=== PATIENT | female | born 1965 | race Caucasian/White ===

== ENCOUNTER → 2024-06-01 15:10 | Outpatient (BNVA) | payer BC, SELFPAY | DX: Z76.89 Persons encountering health services in other specified circumstances (principal); I10 Essential (primary) hypertension | CPT/HCPCS: 80053; 80061; 84439; 84443; 85025 ==

== ENCOUNTER 2024-06-02 12:18 | Outpatient (CLI) | payer BC, SELFPAY ==
--- NOTE | 2024-06-02 12:30 | MM_ITS ---
WS: [id number] BILATERAL 3D TOMOSYNTHESIS DIGITAL SCREENING MAMMOGRAPHY WITH CAD CLINICAL INFORMATION: screening HISTORY: Screening mammogram. No current complaints. COMPARISON: None. TECHNIQUE: Bilateral CC and MLO views. FINDINGS: Scattered fibroglandular densities bilaterally. No suspicious focal mass, asymmetry, calcifications, or architectural distortion. No evidence of malignancy. MM/[place] [id number] IMPRESSION: DENSITY: There are scattered areas of fibroglandular density. BI-RADS: 2 - Benign. FOLLOW UP: 1 Year Follow-up Recommend return to annual screening mammography.
== END 2024-06-02 12:19 | disposition home or self-care (01) ==
LOC: RAD 12:18
DX: Z12.31 Encounter for screening mammogram for malignant neoplasm of breast (principal)
CPT/HCPCS: 77063; 77067

== ENCOUNTER 2024-10-12 11:13 | Outpatient (CLI) | payer BC, MEDICAID, SELFPAY ==
--- NOTE | 2024-10-12 11:17 | XRR_ITS ---
PROCEDURE INFORMATION: Exam: XR Right Knee Exam date and time: 10/12/2024 11:25 AM Age: 59 years old Clinical indication: Pain; Knee; Bilateral; Additional info: Bilat knee pain TECHNIQUE: Imaging protocol: Radiologic exam of the right knee. Views: 3 views. COMPARISON: No relevant prior studies available. FINDINGS: Bones/joints: No acute bony abnormality. No suspcious lytic or blastic osseous lesions. Soft tissues: Unremarkable. XR/XR knee RT 3V* [id number] IMPRESSION: No acute bony abnormality. If symptoms persist, consider repeat plain films in 5-7 days. If there is clinical concern for internal derangement, then consider further evaluation with MRI, if MRI is clinically safe to obtain.
--- NOTE | 2024-10-12 11:17 | XRR_ITS ---
PROCEDURE INFORMATION: Exam: XR Left Knee Exam date and time: 10/12/2024 11:25 AM Age: 59 years old Clinical indication: Pain; Knee; Bilateral; Additional info: Bilat knee pain TECHNIQUE: Imaging protocol: Radiologic exam of the left knee. Views: 3 views. COMPARISON: No relevant prior studies available. FINDINGS: Bones/joints: No acute bony abnormality. No suspcious lytic or blastic osseous lesions. Soft tissues: Unremarkable. XR/XR knee LT 3V* [id number] IMPRESSION: No acute bony abnormality. If symptoms persist, consider repeat plain films in 5-7 days. If there is clinical concern for internal derangement, then consider further evaluation with MRI, if MRI is clinically safe to obtain.
--- NOTE | 2024-10-12 11:17 | XRR_ITS ---
PROCEDURE INFORMATION: Exam: XR Bilateral Hips Exam date and time: 10/12/2024 11:25 AM Age: 59 years old Clinical indication: Hip pain; Bilateral; Additional info: Bilat hip pain TECHNIQUE: Imaging protocol: Radiologic exam of the bilateral hips. Views: 2 views of hips with pelvis when performed. COMPARISON: CR XR lumbar spine 2-3V* [id number] 10/12/2024 11:25 AM FINDINGS: Bones/joints: No acute fracture. Soft tissues: Unremarkable. XR/XR hip BI 3-4V wo/[place] [id number] IMPRESSION: No acute bony abnormality. If symptoms persist, consider repeat plain films in 5-7 days. If symptoms persist, consider further evaluation with cross-sectional imaging.
--- NOTE | 2024-10-12 11:17 | XRR_ITS ---
PROCEDURE INFORMATION: Exam: XR Lumbosacral Spine Exam date and time: 10/12/2024 11:25 AM Age: 59 years old Clinical indication: Low back pain TECHNIQUE: Imaging protocol: Radiologic exam of the lumbosacral spine. Views: 2 or 3 views. COMPARISON: CR XR hip BI 3-4V wo/[place] pel [id number] 10/12/2024 11:25 AM FINDINGS: Bones/joints: No acute fracture. Normal alignment. Soft tissues: Unremarkable. XR/XR lumbar spine 2-3V* [id number] IMPRESSION: No acute findings. If symptoms persist, consider further evaluation with cross-sectional imaging.
--- NOTE | 2024-10-12 11:17 | XRR_ITS ---
PROCEDURE INFORMATION: Exam: XR Right Hand Exam date and time: 10/12/2024 11:25 AM Age: 59 years old Clinical indication: Hand; Patient HX: Pain and swelling in right 5th digit; Additional info: Right hadn pain TECHNIQUE: Imaging protocol: Radiologic exam of the right hand. Views: 3 or more views. COMPARISON: No relevant prior studies available. FINDINGS: Bones/joints: There appears to be a masslike process remodeling the right 5th distal phalanx and possibly the 5th DIP joint. There are associated soft tissue calcifications. XR/XR hand RT min 3V* [id number] IMPRESSION: Masslike process with associated calcifications involving the right 5th distal phalanx and possibly of the 5th DIP joint. Although, this may be related to an inflammatory arthropathy, underlying malignancy cannot be excluded. Findings may be further assessed with MRI with and without IV contrast. Tissue sampling with biopsy may also be of value.
== END 2024-10-12 11:14 | disposition home or self-care (01) ==
LOC: RAD 11:14
DX: M79.641 Pain in right hand (principal); R93.6 Abnormal findings on diagnostic imaging of limbs; M25.551 Pain in right hip; M25.552 Pain in left hip; M25.561 Pain in right knee; M25.562 Pain in left knee; M54.50 Low back pain, unspecified; G89.29 Other chronic pain
CPT/HCPCS: 72100; 73130; 73522; 73562

== ENCOUNTER → 2024-10-29 14:08 | Outpatient (BNVA) | payer BC, SELFPAY | PROVIDERS: Visit Provider Orthopaedic Surgery | DX: M54.50 Low back pain, unspecified (principal); M54.6 Pain in thoracic spine | CPT/HCPCS: 72072; 72110 ==

== ENCOUNTER → 2024-11-11 14:24 | Outpatient (BNVA) | payer BC, SELFPAY | PROVIDERS: Visit Provider Student in an Organized Health Care Education/Training Program | DX: R22.31 Localized swelling, mass and lump, right upper limb (principal) | CPT/HCPCS: 73130 ==

== ENCOUNTER 2024-12-01 13:03 | Outpatient (CLI) | payer BC, MEDICAID, SELFPAY ==
--- NOTE | 2024-12-01 13:05 | MR_ITS ---
WS: [id number] MRI LUMBAR SPINE NONCONTRAST HISTORY: VERTEBROGENIC LOW BACK PAIN COMPARISON: None available. TECHNIQUE: Sagittal and axial multisequence imaging is submitted. Mild increase in thoracic kyphosis. Normal lumbar alignment with no compression fractures or marrow edema. Disc spaces and vertebral body heights are well-preserved. Conus terminates normally at L1-2 disc level. L1-L2: Normal. L2-L3: Mild bilateral ligamentum flavum and facet arthritis. L3-L4: Mild annular disc bulging with osteophytic ridging. Ligamentum flavum hypertrophy and facet arthritis. Mild central and bilateral subarticular recess stenosis. No foraminal stenosis. Mild disc encroachment upon the traversing L4 nerve roots. Very shallow LEFT foraminal disc protrusion. L4-L5: Mild annular disc bulging with moderate ligamentum flavum and facet arthritis. Mild subarticular recess encroachment. L5-S1: Bilateral facet joint arthropathy. No stenosis or disc protrusion. Paravertebral soft tissues are negative. MR/MR lumbar spine wo con* [id number] IMPRESSION: 1. No high-grade central or foraminal stenosis. 2. No lumbar spine fracture. 3. L3-4: Mild central and subarticular recess stenosis. Very slight disc encro achment upon the traversing L4 nerve roots. 4. L4-5: Annular disc bulging with ligamentum flavum and facet arthritis. Mild subarticular recess encroachment. No high-grade stenosis.
== END 2024-12-01 13:04 | disposition home or self-care (01) ==
PROVIDERS: Visit Provider Anesthesiology Pain Medicine
DX: M54.51 Vertebrogenic low back pain (principal); M48.061 Spinal stenosis, lumbar region without neurogenic claudication; M51.369 Other intervertebral disc degeneration, lumbar region without mention of lumbar back pain or lower extremity pain; M47.896 Other spondylosis, lumbar region; M40.294 Other kyphosis, thoracic region; M25.78 Osteophyte, vertebrae; M47.897 Other spondylosis, lumbosacral region
CPT/HCPCS: 72148

== ENCOUNTER 2025-02-11 10:35 | Day surgery (SDC) | payer BC, MEDICAID, SELFPAY ==
[2025-02-11] VITALS (7 sets, daily range): BP systolic 97–156; BP diastolic 60–95; PULSE 62–69; RESP 16–18; TEMP 36.2–37.1; O2SAT 98–99; BMI 22.8
[2025-02-11] MEDS: ketorolac 30 mg/mL INJ IVP (11:10)
[2025-02-11] MEDS: sodium chloride 0.9% 1,000 ML 30 ML IV (11:10)
[2025-02-11] MEDS: acetaminophen 1,000 MG/100 ML PIGGYBACK 400 MG IV (11:10)
--- NOTE | 2025-02-11 12:53 | W.PM.OPSUD ---
Surgery/Procedure H&P Update DATE OF PROCEDURE: February 11, 2025 DATE H&P PERFORMED: 01/27/25 H&P UPDATE INFORMATION: I have reviewed H&P completed within last 30 days, I have examined patient prior to procedure and No changes to prior documentation PREOP DIAGNOSIS: Right small finger chondroma PRIMARY INDICATION FOR PROCEDURE: Right small finger chondroma with erosive changes throughout the ulnar aspect of the distal phalanx PLANNED PROCEDURE: Operation Date: 02/11/25 12:10 Proposed Procedures p RIGHT SMALL FINGER Amputation Finger through Middle Phalanx(Right) - Alan Zaman DO s chondroma excision(Right) - Alan Zaman DO
--- NOTE | 2025-02-11 13:27 | ANES.PREANE2 ---
Pre-Anesthetic Assessment Height/Weight: Height 5 ft 3 in Weight 129 lb Temp Pulse Resp BP Pulse Ox O2 Del Method 98.7 F 62 18 134/78 99 Room Air 02/11/25 11:00 02/11/25 11:00 02/11/25 11:00 02/11/25 11:00 02/11/25 11:00 02/11/25 11:00 Preop Diagnosis: Right small finger chondroma Operation Date: 02/11/25 12:10 Proposed Procedures p RIGHT SMALL FINGER Amputation Finger through Middle Phalanx(Right) - Alan Junie, DO s chondroma excision(Right) - Alan Zaman DO Was Beta Coni taken within 24 hours: N/A Was Clonidine taken within 24 hours: N/A Last intake: Intake Last Liquid Date 02/10/25 Last Liquid Time 18:30 Last Solid Date 02/10/25 Last Solid Time 18:30 Social No alcohol and No tobacco Exam alert, oriented x 3 and regular rate & rhythm Airway Submandibular: within normal limits Cervical ROM: within normal limits Mallampati: Class II Comments: Comments: edentulous Anesthetic Plan ASA status: 2 Anesthesia: MAC Other: No prior issues with anesthesia NPO since yesterday evening Denies any cardiac issues History of asthma, occasional inhalers MDD Patient states she is able to perform all ADLs Plan for MAC anesthesia with local via surgeon Medications/Allergies Home Medications ?Medication ?Instructions ?Recorded ?Confirmed ?Last Taken ?Type albuterol sulfate 90 mcg/actuation 1 inh inhalation QID PRN shortness 06/01/24 02/10/25 Unknown Rx aerosol inhaler of breath or wheezing #6.7 grams conjugated estrogens 0.3 mg tablet 0.3 mg PO DAILY #30 tabs 09/28/24 02/10/25 02/03/25 Rx ibuprofen 800 mg tablet 800 mg PO Q8H #60 tabs 09/28/24 02/10/25 02/07/25 Rx citalopram 40 mg tablet 40 mg PO DAILY #30 tabs 10/19/24 02/10/25 02/06/25 Rx cyclobenzaprine 5 mg tablet 5 mg PO .HS #30 tabs 11/19/24 02/10/25 02/06/25 Rx gabapentin 400 mg capsule 400 mg PO BID #60 caps 11/19/24 02/10/25 Unknown Rx hydrocodone 7.5 mg-acetaminophen 1 tab PO Q6H PRN pain #20 tabs 02/11/25 Unknown Rx 325 mg tablet ondansetron 4 mg disintegrating 4 mg PO Q8H PRN nausea and 02/11/25 Unknown Rx tablet vomiting 3 days #9 tabs Allergies Allergy/AdvReac Type Severity Reaction Status Date / Time No Known Allergies Allergy Verified 02/09/25 07:28 Current Medications Generic Name Dose Route Start Last Admin Trade Name Freq PRN Reason Stop Dose Admin Sodium Chloride 1,000 mls @ 30 mls/hr 02/11/25 10:45 02/11/25 11:10 Sodium Chloride 0.9% IV 02/12/25 10:44 30 mls/hr .Q24H ANTOINE Administration PFSH Anesthesia Medical History Mass of right finger Bilateral knee pain Bilateral hip pain Right hand pain Psychiatric care Screening for breast cancer Post hysterectomy menopause Chronic lower back pain Encounter to establish care Anxiety Depression Hypertension Asthma 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
[2025-02-11] MEDS: ceFAZolin 2,000 MG in sodium chloride 0.9% (plus) 50 ML 100 MG IV (13:53)
--- NOTE | 2025-02-11 14:32 | P.BOP_ITS ---
Date of Procedure: 02/11/2025 Surgeon: Alan Zaman DO Case Preparer And Liner(s): None Procedure(s) performed: Right small finger amputation through middle phalanx with chondroma excision (2 cm x 1 cm x 1 cm) Findings of the procedure(s): Patient had a large chondroma erosive changes throughout the distal phalanx and the DIP joint with eroded ulnar collateral ligament at this point in time this was then excised through the distal phalanx and then rongeured off the condyle and completed an amputation through the right small finger middle phalanx leaving the FDS is intact. Underwent procedure as planned without issues or complications. Taken to recovery in stable condition. Estimated blood loss: 5 mL Specimen(s) removed: Right small finger amputation with chondroma sent for specimen Post-operative diagnosis: Right small finger chondroma with erosive changes to her distal phalanx and eroded ulnar collateral ligament
--- NOTE | 2025-02-11 14:35 | PM.OP ---
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 throughout the ulnar aspect of the distal phalanx Post-op diagnosis: same Post-op findings: see op note Procedure done: Right small finger amputation through middle phalanx with chondroma excision (2 cm x 1 cm x 1 cm) Implants: none Specimens removed/disposition: Right small finger amputation with chondroma sent for specimen Pathology: Right small finger amputation with chondroma sent for specimen Surgeon: Alan Zaman DO First Grade Teacher: none Anesthesia: Other (see anesthesia record) Estimated blood loss: 5mL 12mins IV fluids: 700mL Complications: none Findings: see op note Condition: stable Disposition: same day Brief History: Patient is a pleasant 59-year-old female who has a right small finger mass and deformity to the distal fingertip with significant pain this has been biopsied by dermatology consistent with a chondroma. We talked about her treatment options in detail she already has angular deformity erosive changes in the bone as well as significant nail deformity. At this point in time we talked about her treatment options researches make sure elects proceed with surgical intervention for right small finger amputation through the middle phalanx with chondroma excision. She understands the ins and outs procedure risk benefits complication alternatives of surgery and through shared decision-making elects proceed with surgical intervention. All questions answered at this time. Procedure: Patient was seen by in the preoperative holding area. Consent was reviewed and signed with patient. Correct extremity and digit was subsequently marked. Patient was then seen evaluated by anesthesia once cleared for surgery was taken back to the operative suite [facility] armboard applied to the right upper extremity. A nonsterile tourniquet was applied to the right upper arm. Patient underwent anesthesia per the anesthesia department. Once appropriate anesthetized the right upper extremities prepped draped standard orthopedic fashion. Final timeout performed. Patient received appropriate preoperative antibiotics. At this point in time I then subsequently marked out my preplanned incision site using a fishmouth incision over the DIP joint. With care to keep as much soft tissue envelope was still carried to excise patient's chondroma. Patient had angular deformity, unstable ulnar collateral ligament of the DIP joint with erosive bony changes appreciated this point in time to sharp scalpel incision with a fishmouth incision with the anterior and posterior flap. Sharp scalpel incision was made through skin only switch to Littler dissection scissors dissected out the neurovascular bundle which at this level then subsequently was underwent wound traction neurectomies as well as coagulation of the neurovascular bundle. At this point in time I then dissected out the chondroma to its entirety and then performed traction releases of the flexor extensor tendons off of the DIP joint. At this point in time this ellipsed out the entirety of the chondroma. This was then subsequently sent for specimen this measured 2 cm x 1 cm x 1 cm. At this point in time patient had no evidence of residual chondroma tracking proximally into the middle phalanx at this point in time I then subsequently utilized a rongeur to remove the condyles as well as remove the articular cartilage around the soft. This was taken right to the soft tissue level to allow for adequate closure I utilized mini C arm to make sure satisfactory no bony prominences and utilized a rasp as well once I was satisfied with this I then subsequently thoroughly irrigated the wound bed tourniquet was deflated hemostasis satisfactory and then subsequently closed the skin with interrupted nylon suture. Patient tolerated well without issues or complication dressed in Xeroform 4 x 4's Hunter wrap and an Geovanny wrap. Patient was awake from anesthesia taken PACU in stable condition. Disposition: Patient taken to PACU stable condition recovering well received appropriate discharge structure as well as pain medication postoperatively will follow-up on specimen. Follow-up in the office in 2 weeks patient understands agrees to current plan. All questions answered.
--- NOTE | 2025-02-11 14:49 | P.PCN_ITS ---
PACU note Narrative: Patient is a 59-year-old female just underwent a right small finger amputation. Patient transferred to PACU in stable condition. Pain is well controlled. Dressing on hand is dry and in place. Patient's fingers are warm and well- perfused. Patient can wiggle fingers. normal cap refill under 2 seconds. Patient has normal elbow range of motion. Sensation to hand intact. Exam: awake Disposition: discharged
--- NOTE | 2025-02-11 15:35 | ANE.PACU2 ---
Inpatient post-anesthesia follow up: Airway intact: Yes Vital signs: Temperature 97.4 F Pulse Rate 63 Respiratory Rate 18 Blood Pressure 156/95 Pulse Oximetry 99 Oxygen Delivery Me thod Room Air Oxygen Flow Rate Fraction of Inspir ed Oxygen Hydration adequate: Yes Nausea and vomiting: No Pain level: 1 Mental status: Baseline
--- NOTE | 2025-02-11 15:44 | SUR.PHASEII ---
Patient dressing on surgical finger while she was getting dressed. Reported to OR and new dressing put on by tech. Abner
== END 2025-02-11 15:35 | disposition home or self-care (01) ==
PROVIDERS: Visit Provider Student in an Organized Health Care Education/Training Program
PROC: (CPT 26951; principal; 2025-02-11 12:10)
PROC: (CPT 26951; 2025-02-11 12:10)
DX: D16.11 Benign neoplasm of short bones of right upper limb (principal); I10 Essential (primary) hypertension; Z79.899 Other long term (current) drug therapy
CPT/HCPCS: 26951; 88305; 88311; J0131; J0690; J1885; J2250; J2704; J3010; J7030